=== PATIENT | male | born 1985 | race Caucasian/White ===

== ENCOUNTER 2017-03-18 22:00 | Emergency (ER) | payer OTHER ==
[2017-03-18] MEDS ORDERED: TDAP ADULT 0.5 ML INJ (BOOSTRIX) IM ONE (22:49)
[2017-03-18] MEDS ORDERED: ONDANSETRON DISINTEGRATING 4 MG TAB ONE (23:45)
[2017-03-19] MEDS ORDERED: ONDANSETRON DISINTEGRATING 4 MG TAB PO ONE (00:02)
[2017-03-19] MEDS ORDERED: CEPHALEXIN 500MG PREPACK#4 BTL TAKEHOME ONE (00:18)
[2017-03-19] MEDS ORDERED: CEPHALEXIN 500 MG CAP PO ONE (00:18)
--- NOTE | 2017-03-19 00:19 | EDPHY ---
H & P Stated Complaint: pt says he fell rock climbing, large lac to R forearm, thinks poss fx - Medical/Surgical History Hx Asthma: No Hx Chronic Respiratory Disease: No Hx Diabetes: No Hx Cardiac Disease: No Hx Renal Disease: No Hx Cirrhosis: No Hx Alcoholism: No Hx HIV/AIDS: No Hx Splenectomy or Spleen Trauma: No Other PMH: laminectomy related to back fx - Social History Smoking Status: Never smoked HPI/ROS: Chief complaint: Right arm injury History of present illness: This is a 31-year-old male who presents to the emergency department for a right arm injury. Patient was hiking earlier this evening when he tripped and fell landing onto his right arm. Patient sustained a laceration to the forearm. He further injured his right thumb. He states it was very difficult to control the bleeding from the laceration site but ultimately was able to control it with direct pressure, a dressing and briefly a tourniquet which he was able to remove on his own. He reports discomfort in the right thumb and around the laceration site. The rest of his hand, wrist and forearm as well as the elbow and upper arm are without discomfort. He denies abnormal coolness or paresthesias in the right upper extremity. No other injuries are reported. His tetanus is not up-to-date. Review of systems: A 10 point review of systems was obtained and other than described above was negative (Jasper Rodriguez) - Physical Exam Exam: General: Alert, nontoxic Skin: 5 cm laceration to the middle medial aspect of the right forearm. There is some small foreign bodies noted. No deep structure injury is identified. Musculoskeletal: There is tenderness to the base of the right thumb. The rest of the hand is nontender. Patient has been able to move all joints in all digits in all ha in the right hand well. The wrist is nontender including the snuffbox. He is moving it in all ha well. Mild tenderness around the site of the laceration without bony deformity or crepitus. Patient is moving his right elbow with flexion and extension and pronation supination well. Vascular: Radial pulses 2+. Capillary refill brisk in the right hand. There is brisk bleeding from the laceration appears to come from a small veinule Neurologic: Sensation intact throughout the right upper extremity. (Jasper Rodriguez ) Constitutional: Initial Vital Signs Temperature (C) 36.6 C 03/18/17 22:03 Heart Rate 62 03/18/17 22:03 Respiratory Rate 16 03/18/17 22:03 Blood Pressure 133/78 H 03/18/17 22:03 O2 Sat (%) 98 03/18/17 22:03 O2 Delivery Mode Room Air Allergies/Adverse Reactions: No Known Allergies Allergy (Unverified 03/18/17 22:07) Home Medications: Medication Instructions Recorded Cephalexin [Keflex (*)] 500 mg PO QID 5 Days 03/19/17 Medical Decision Making - Diagnostics Imaging: I viewed and interpreted images myself - Diagnostics Imaging Results: Imaging Impressions Forearm X-Ray 03/18/17 22:49 Impression: Soft tissue injury right forearm with radiopaque debris. No evidence for acute fracture. Hand X-Ray 03/18/17 23:25 Impression: No evidence for acute osseous abnormality. Procedures: Procedure: Laceration repair. Verbal consent was obtained from the patient. The 5 cm laceration on the right forearm was anesthetized in the usual fashion. The wound was irrigated, draped and explored to its base with a gloved finger. There were no deep structures involved. No tendon injury was identified. No foreign bodies visualized after wound was irrigated. The wound was repaired with 4 0 Ethilon, 9 simple interrupted sutures. The wound repair was simple. The procedure was performed by myself. (Jasper Rodriguez) ED Course/Re-evaluation: Patient is discussed with my secondary supervising physician Dr. Tatyana Koehler. Patient presents to the emergency department for a right upper extremity injury. The right upper extremity is neurovascularly intact. He has good musculoskeletal control of it. He has soreness on palpation of the base of the right thumb. He does have a large laceration to the right forearm. Laceration did appear to have foreign body contamination on inspection and x- rays. It was cleaned. I have debrided it and manually removed a few small foreign bodies. On further inspection I do not see further foreign bodies. However follow-up x-ray after cleaning and debridement is concerning for possible small retained foreign body. I am not able to find this to remove it. Patient does have significant bleeding. Unfortunately I do not believe he can be left open for delayed primary closure or to heal by secondary intention given the poor control of bleeding while the wound is open. His wound is sutured shut. I have discussed with him there might be very small retained foreign bodies we are unable to get out but we should probably close it for good hemostasis. He will be prophylactically started on antibiotics. He is asked to follow up with hand surgery or orthopedics for recheck of this injury and referral information is provided. Return precautions are given. Patient voiced understanding and agreement with plan. (Jasper Rodriguez) Differential Diagnosis: Included but not limited to soft tissue injury including laceration, deep structure injury including bony fracture, foreign body contamination (Jasper Rodriguez ) Other Provider: PHYSICIAN DOCUMENTATION: The patient was evaluated and managed by the Physician Economic Forecaster. My co- signature indicates that I have reviewed this chart and I agree with the findings and plan of care as documented. I am the secondary supervising physician. (Tatyana Koehler) - Data Points Medications Given: Discontinued Medications Cephalexin (Keflex 500 Mg Prepack#4) 1 btl TAKEHOME EDNOW ONE PRN Reason: Protocol Stop: 03/19/17 00:19 Last Admin: 03/19/17 00:41 Dose: 1 btl Cephalexin HCl (Keflex) 500 mg PO EDNOW ONE PRN Reason: Protocol Stop: 03/19/17 00:19 Last Admin: 03/19/17 00:40 Dose: 500 mg Diphtheria/Tetanus/Acell Pertussis (Boostrix) 0.5 ml IM .ONCE ONE Stop: 03/18/17 22:50 Last Admin: 03/18/17 23:04 Dose: 0.5 ml Ondansetron HCl (Zofran Odt) 4 mg PO EDNOW ONE Stop: 03/19/17 00:03 Last Admin: 03/19/17 00:03 Dose: 4 mg Departure - Departure Disposition: Home, Routine, Self-Care Clinical Impression: Forearm laceration Qualifiers: Encounter type: initial encounter Laterality: right Qualified Code(s): S51.811A - Laceration without foreign body of right forearm, initial encounter Condition: Good Instructions: Cephalexin (By mouth), Care For Your Stitches (ED), Laceration ( ED), Acute Wounds (ED) Additional Instructions: Follow-up with a hand doctor or orthopedics this week for recheck Take antibiotics as prescribed until finished even feeling better There may be small amounts of foreign bodies retained in your wound, discuss this with Orthopedics If symptoms worsen or new symptoms develop return to the emergency room for recheck Referrals: Michele Campos MD [Medical Doctor] - As per Instructions NONE *PRIMARY CARE P,. [Primary Care Provider] - As per Instructions Herminia Ch MD [Medical Doctor] - As per Instructions Prescriptions: Cephalexin [Keflex (*)] 500 mg PO QID 5 Days
[2017-03-19 00:42] VITALS: BP 120/71; PULSE 64; RESP 20; TEMP 98.2; O2SAT 94
== END 2017-03-19 00:42 | disposition home or self-care (01) ==
PROC: 0HQDXZZ Repair Right Lower Arm Skin, External Approach (ICD-10-PCS; principal; 2017-03-18)
DX: S51.811A Laceration without foreign body of right forearm, initial encounter (principal); Z23 Encounter for immunization; W01.0XXA Fall on same level from slipping, tripping and stumbling without subsequent striking against object, initial encounter; Y99.8 Other external cause status; Y93.01 Activity, walking, marching and hiking